=== PATIENT | male | born 1955 | race Caucasian/White ===

== ENCOUNTER 2025-04-19 19:50 | Emergency (ER) | payer MEDICARE, SELFPAY ==
[2025-04-19 19:50] VITALS: BP 155/68; PULSE 67; RESP 22; TEMP 36.3; O2SAT 95
--- OUTSIDE RECORDS SUMMARY | 2025-04-19 19:56 | XMS_ITS | Encounter Summary ---
Author Organization [facility] Address [address] [place] [address] Phone Care Team Providers Care Nuclear Plant Equipment Operator Name Role Phone Varinder Rojas MD Primary Care Provider [phone] No, Physician Primary Care Provider [phone] Encounter Details Date Type Department Care Team (Latest Contact Info) Description 07/31/2019 Orders Only [facility] Scanning, Provider Social History Tobacco Use Types Packs/Day Years Used Date Smoking Tobacco: Former Smokeless Tobacco: Never Alcohol Use Standard Drinks/Week Comments Defer 0 (1 standard drink = 0.6 oz pur e alcohol) Sex and Gender Information Value Date Recorded Sex Assigned at Not on file 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 Gender Identity Not on file Sexual Orientation Not on file documented as of this encounter Plan of Treatment Not on file documented as of this encounter Procedures Procedure Name Priority Date/Time Associated Diagnosis Comments SCAN - LABS 07/31/2019 documented in this encounter Results * SCAN - LABS (07/31/2019) us Provider Scanning Final Result documented in this encounter Visit Diagnoses Not on filedocumented in this encounter Care Teams Nuclear Plant Equipment Operator Relationship Specialty Start Date End Date Varinder Rojas MD [address] [place] [address] PCP - General 11/09/16 10/05/22 No, Physician PCP - General 11/23/23 documented as of this encounter
--- OUTSIDE RECORDS SUMMARY | 2025-04-19 19:56 | XMS_ITS | Clinical Summary ---
Author Organization [facility] Address [address] [place] [address] Care Team Providers Care Director Of Ancillary Services Name Role Phone No, Physician Primary Care Provider [phone] Allergies Active Allergy Reactions Criticality Noted Date Comments Bupropion Hives Medium 10/24/2022 Souhxox-Csg-Ykc Reductase Inhibitors Hives,Muscle pain Medium 07/23/2019 Muscle pain Sulfa (Sulfonamide Antibiotics) Anaphylaxis High 12/20/2017 Couth sores; Also any type of sulfa based drugs Medications multivitamin tabletIndicatio ns:Vitamin Deficiency Prevention daily. 01/14/20 08 Active sildenafil, antihypertensiv e, (REVATIO) 20 mg tablet TAKE 2 TO 5 TABLETS BY MOUTH NEEDED. MAX OF 5 PER DAY. 1 01/26/20 19 Active omeprazole (PriLOSEC) 20 mg capsule Take 1 capsule (20 mg total) by mouth daily Active ibuprofen (ADVIL,MOTRIN) suspension 100 mg/5 mL Take 1 tablet by mouth as needed Active lnpph-lzepi-2-d ar-cjy-fvrswu 734-95-38-50 mg capsule Take 1 capsule by mouth daily Active finasteride (PROSCAR) 5 mg tablet Take 1 tablet (5 mg total) by mouth nightly at bedtime 10/23/19 22 Active losartan (COZAAR) 50 mg tablet Take 1 tablet (50 mg total) by mouth daily 04/06/20 22 Active ezetimibe (ZETIA) 10 mg tablet Take 1 tablet (10 mg total) by mouth daily 10/26/19 23 Active ketoconazole (NIZORAL) 2 % shampoo APPLY SHAMPOO TOPICALLY TWICE WEEKLY 11/01/19 23 Active co-enzyme Q-10 50 mg capsule Take 1 capsule (50 mg total) by mouth daily Active carBAMazepine (TEGretol) 100 mg chewable tablet 03/06/20 23 Active krill oil 500 mg capsule Take by mouth daily Active multivitamin-mi nerals-lutein (Multivitamin 50 Plus) tablet Take 1 tablet by mouth daily Active coQ10, ubiquinol, 100 mg capsule daily Active losartan (COZAAR) 100 mg tablet Take 1 tablet (100 mg total) by mouth daily 06/21/20 23 Active amitriptyline (ELAVIL) 10 mg tablet TAKE 1 TABLET BY MOUTH AT BEDTIME MAY INCREASE TO TWO TABLETS AT BEDTIME AFTER 1 WEEK 12/08/19 24 Active predniSONE (DELTASONE) 5 mg tabletIndicatio ns:Psoriatic arthritis (HCC) Take 1/2 (one-half) tablet by mouth once daily 45 tablet 06/28/20 24 Active amLODIPine (NORVASC) 5 mg tablet Take 1 tablet (5 mg total) by mouth daily Active lisinopriL (PRINIVIL,ZESTR IL) 10 mg tablet Take 1 tablet (10 mg total) by mouth daily Active tofacitinib (Xeljanz XR) 11 mgIndications:R heumatoid arthritis, involving unspecified site, unspecified whether rheumatoid factor present (HCC) Take 1 tablet (11 mg total) by mouth daily 90 tablet 02/04/20 25 Active celecoxib (CeleBREX) 200 mg capsuleIndicati ons:Rheumatoid arthritis (HCC),Rheumatoi d arthritis with positive rheumatoid factor, involving unspecified site (HCC) Take 1 capsule (200 mg total) by mouth 2 (two) times a day 180 capsule 02/04/20 25 Active Additional Information Patient not taking.Reported on 02/26/2025 leflunomide (ARAVA) 20 mg tabletIndicatio ns:Psoriatic arthritis (HCC) Take 1 tablet by mouth once daily 90 tablet 1 04/04/20 25 Active leflunomide (ARAVA) 20 mg tabletIndicatio ns:Psoriatic arthritis (HCC) Take 1 tablet by mouth once daily 90 tablet 01/08/20 25 025 Discontinued Active Problems Problem Noted Date Diagnosed Date Primary osteoarthritis of right knee 11/05/2024 Psoriatic arthritis 09/29/2020 Obstructive sleep apnea 03/21/2019 Rheumatoid arthritis 11/06/2010 Overview (10/20/2017): Description: Rheumatoid Arthritis Encounters Date Type Department Care Team Description 02/26/2025 11:15 AM CDT Office Visit [facility] [address] [place] [address] [address] [place] [address] Gonzalo Harding NP Primary osteoarthritis of right knee (Primary Dx); Patellofemoral pain syndrome of right knee 02/26/2025 7:39 AM CDT - 02/26/2025 11:59 PM CDT Hospital Encounter [facility] [address] [place] [address] [address] [place] [address] Discharge Disposition: Discharge to home or self care 02/26/2025 Telephone [facility] [address] [place] [address] [address] [place] [address] Gonzalo Harding NP 02/03/2025 Telephone [facility] [address] [place] [address] Danielle Augustin, [facility] from Last 3 Months Immunizations Immunization Administration Dates Next Due Influenza, Quadrivalent, Hig h Dose, Preservative Free, Intrr 06/30/2020 Surgical History Surgery Date Site/Laterality Comments CARPAL TUNNEL RELEASE KNEE ARTHROSCOPY 07/10/1985 - 07/09/1986 SHOULDER ARTHROSCOPY 07/10/2003 - 07/09/2004 Medical History Medical History Date Comments Seasonal allergies Anxiety Autoimmune Chandler's disease Bone fracture Depression Hypertension Acid reflux disease Sinus infection Sleep apnea Acid reflux Allergic rhinitis Anxiety Depression High blood pressure Family History Medical History Relation Name Comments Lupus Daughter Family history of systemic lupus erythematosus - (Added by TW Conv) Brain Aneurysm Father Arthritis Mother Family history of arthritis - (Added by TW Conv) Arthritis Paternal Grandmother Fibromyalgia Sister Family history of fibromyalgia - (Added by TW Conv) Relation Name Status Comments Daughter Father Mother Paternal Grandmother Sister Social History Tobacco Use Types Packs/Day Years Used Date Smoking Tobacco: Former Smokeless Tobacco: Never Tobacco Cessation:Counseling Given: Not Answered Alcohol Use Standard Drinks/Week Comments Yes 0 (1 standard drink = 0.6 oz pur e alcohol) AUDIT-C Answer Date Recorded Q1: How often do you have a drink containing alc ohol? Monthly or less 02/26/2025 Q2: How many drinks containi ng alcohol do you have on a typical day when you are drinking? 1 or 2 02/26/2025 Q3: How often do you have si x or more drinks on one occasion? 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 Gender Identity Not on file Sexual Orientation Not on file Obstetrics History Last Filed Vital Signs Vital Sign Reading Time Taken Comments Blood Pressure 126/74 02/26/2025 11:07 AM CDT Pulse 75 02/26/2025 11:07 AM CDT Temperature 36.6 C (97.8 F) 10/16/2024 12:59 PM CDT Respiratory Rate 20 09/26/2022 10:17 AM CDT Oxygen Saturation 98% 10/16/2024 7:30 PM CDT Inhaled Oxygen Concentration - - Weight 94.8 kg (209 lb) 02/26/2025 11:07 AM CDT Height 182.9 cm (6') 02/26/2025 11:07 AM CDT Body Mass Index 28.35 02/26/2025 11:07 AM CDT Plan of Treatment Health Maintenance Due Date Last Done Comments Colon Cancer Screening-Colonoscopy 1955 Depression Screening 1956 Fall Risk Assessment 1955 Hepatitis C Screening 1955 Prostate Cancer Screening-PSA 1956 DTaP/Tdap/Td Vaccine (1 - Tdap) 09/11/1967 Hepatitis B Screening 1974 Pneumococcal vaccine 65+ (1 of 2 - PCV) 09/11/1975 Zoster Vaccine (1 of 2) 09/11/1975 Abdominal Aortic Aneurysm (A AA) Screen 2021 Well Visit 65+ 2021 Covid-19 Vaccine ( season) 2025 06/21/2021, 10/16/2020, 09/16/2020 Influenza Vaccine (#1) 2025 0, 07/04/2019, 06/15/2018 Procedures Procedure Name Priority Date/Time Associated Diagnosis Comments XR KNEE RIGHT 4 OR MORE VIEWS Schedule Routine, Read Routine (OP Routine) 02/26/2025 10:57 AM CDT Primary osteoarthritis of right knee from Last 3 Months Results * XR Knee Right 4 or More Views (02/26/2025 10:57 AM CDT) Anatomical Region Laterality Modality Lower Extremities, Knee Right Digital Radiography Narrative 02/26/2025 1:20 PM CDT Weightbearing views of the right knee are reviewed and demonstrate no acute fractures or osseous changes. Tricompartmental degenerative changes present with joint space narrowing, osteophyte formation, and subchondral sclerosis. Gonzalo Harding NP IMG XR PROCEDURES Edited Result - Final from Last 3 Months Insurance MEDICARE [facility] MEDICARE [facility] MEDICARE SUPPLEMENT MEDICARE [facility] MEDICARE SUPPLEMENT Member Subscriber Plan / Payer (Ef fective 2022-Present) Name:Efren Lindsey Relation to Subscriber:Self Name:LalyjesiEfren Payer ID:[id number] Group ID:[id number] Type:COMMERCIAL Address: [address] Care Teams Director Of Ancillary Services Relationship Specialty Start Date End Date No, Physician PCP - General 11/23/23
--- OUTSIDE RECORDS SUMMARY | 2025-04-19 19:56 | XMS_ITS | Clinical Summary ---
Author Organization [facility] Address [address] [place] [address] Care Team Providers Care Maid Supervisor Name Role Phone Melquiades Garcia MD [facility] Tammy Merritt MD Primary Care Provider [phone] Allergies Active Allergy Reactions Criticality Noted Date Comments Statins Hives 04/20/2021 Muscle pain Sulfa Antibiotics Anaphylaxis High 12/20/2017 Couth sores; Also any type of sulfa based drugs Bupropion Hives 10/24/2022 Medications omeprazole 20 MG capsuleIndicat ions:Gastroeso phageal Reflux Disease Take 1 capsule (20 mg total) by mouth daily. Indications: Gastroesophageal Reflux Disease Active FOLIC ACID ORIndications: Nutritional Support Take 1 tablet by mouth daily. Indications: Nutritional Support Activ e Krill Oil 300 MG CapIndications :Nutritional Support Take 1 capsule by mouth daily. Indications: Nutritional Support Activ e celecoxib (CELEBREX) 200 MG capsule Take 1 capsule (200 mg total) by mouth 2 (two) times daily. 09/16/19 Active losartan (COZAAR) 100 MG tablet Take 1 tablet (100 mg total) by mouth daily. 09/29/19 Active leflunomide (ARAVA) 20 MG tablet TAKE 1 TABLET BY MOUTH ONCE DAILY NEEDS LABS FOR FURTHER REFILLS 09/16/19 Active finasteride (PROSCAR) 5 MG tablet Take 1 tablet (5 mg total) by mouth nightly at bedtime. 09/15/19 Active predniSONE (DELTASONE) 5 mg tablet Take 1 tablet (5 mg total) by mouth daily. 09/16/19 Active sildenafil (REVATIO) 20 MG tablet TAKE 2 TO 5 TABLETS BY MOUTH ONCE DAILY NEEDED 09/17/19 Active coenzyme Q10 (CO Q-10) 50 MG capsule Take 1 capsule (50 mg total) by mouth daily. Active ezetimibe (ZETIA) 10 MG tablet Take 1 tablet (10 mg total) by mouth daily. Active amoxicillin (AMOXIL) 500 MG tablet Take 1 tablet (500 mg total) by mouth 2 (two) times daily. 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 ([facility]) 10/24/2022 Family History Medical History Relation Comments Cancer Father COPD Mother Hypertension Mother Rheumatic Fever Mother multiple myeloma Mother Relation Status Comments Father Mother Social History Tobacco Use Types Packs/Day Years Used Date Smoking Tobacco: Former Cigarettes Smokeless Tobacco: Never Tobacco Cessation:Counseling Given: Not Answered Comments:6-10/yrs Alcohol Use Standard Drinks/Week Comments Yes 0 (1 standard drink = 0.6 oz pur e alcohol) wine daily-usually Sex and Gender Information Value Date Recorded Sex Assigned at Male 01/13/2025 9:58 AM CDT Legal Sex Male 11:34 PM STAFF INTERNIST OFFICE BASED ONLY Gender Identity Not on file Sexual Orientation Not on file Occupation 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 Not on file Not on file Last Filed Vital Signs Vital Sign Reading Time Taken Comments Blood Pressure 145/80 02/17/2023 8:14 AM CDT Pulse 66 02/17/2023 8:14 AM CDT Temperature 35.8 C (96.5 F) 02/17/2023 8:14 AM CDT Respiratory Rate 20 02/17/2023 8:14 AM CDT Oxygen Saturation 98% 02/17/2023 8:14 AM CDT Inhaled Oxygen Concentration - - Weight 96.6 kg (213 lb) 11/25/2024 12:54 PM CDT Height 185.4 cm (6' 1) 11/25/2024 12:54 PM CDT Body Mass Index 28.1 11/25/2024 12:54 PM CDT Plan of Treatment Health Maintenance Due Date Last Done Comments Colorectal Cancer Screening Colonoscopy (10 Years) 1956 Hepatitis C 1974 Pneumococcal Vaccine: 50+ Years (2 of 2 - PCV) 06/14/2013 06/14/2012 Zoster Vaccines (2 of 3) 12/29/2014 11/03/2014 Annual Medicare Wellness Visit 2021 DTaP, Tdap and Td Vaccines (2 - Td or Tdap) 06/14/2022 06/14/2012 PHQ-2 (Physician [place]) 07/10/2024 COVID-19 Vaccine ( season) 2025 06/21/2021, 10/16/2020, 09/16/2020 Influenza Adult (#1) 2025 07/04/2019, 06/15/2018, 04/24/2014, Additional history exists RSV Immunization or 60+ Years (1 - 1-dose 75+ series) 09/11/2031 Meningococcal B Vaccine Aged Out No l onger eligible based on patient's age to complete this topic Meningococcal Vaccine Aged Out No babak grant eligible based on patient's age to complete this topic RSV Immunizations Under 20 Months Aged Out No longer eligible based on patient's age to complete this topic Medical Devices Implanted Type Area Tree Scout Device Identifier Shelf Expiration Date Model / Serial / Lot Screw Synthes 1.5 Cortex Self Tap 10mm - [id number] Implanted:Qty: 1 on 04/23/2021 by Jason Urbina DPM at [facility] Screw Right: Foot SYNTHES 200.810 / / Description:Verified per Screw Synthes 2.0 Cortex Self Tap 8mm - [id number] Implanted:Qty: 1 on 04/23/2021 by Jason Urbina DPM at [facility] Screw Right: Foot SYNTHES 201.808 / / Description:Verified per Screw Synthes 2.0 Cortex Self Tap 18mm - [id number] Implanted:Qty: 1 on 04/23/2021 by Jason Urbina DPM at [facility] Screw Right: Foot SYNTHES 201.818 / / Description:Verified per md Explanted Type Area Tree Scout Device Identifier Shelf Expiration Date Model / Serial / Lot Drill Bit Synthes 1.5 Qc 85mm - [id number] Explanted:Qty: 1 on 04/23/2021 at [facility] Drill Right: Foot SYNTHES 310.15 / / N/A Description:Verified by MD Neal Vang 6 In X .045 In - [id number] Explanted:Qty: 1 on 04/23/2021 at [facility] Wire Right: Foot [employer] [id number] 08/01/2030 [id number] / / [id number] Description:Verified by Insurance [place] [address] [place] [id number] [facility] MEDICARE [facility] Advance Directives * Full Code (Latest Code Status on File) Date Activated Date Inactivated Comments 04/23/2021 10:06 AM 04/23/2021 1:14 PM Care Teams Maid Supervisor Relationship Specialty Start Date End Date Tammy Bang MD [address] [place] [id number] PCP - General FAMILY PRACTICE 03/20/24 Melquiades Garcia MD [facility] Assistant INTERVENTIONAL CARDIOLOGY 12/08/17
--- NOTE | 2025-04-19 20:13 | ED_ITS ---
HPI - Burn/Smoke Inhalation General Chief complaint: Burn/Smoke Inhalation Stated complaint: burn Time Seen by Provider: 04/19/25 20:11 Source: patient and family Mode of arrival: ambulatory Limitations: no limitations History of Present Illness HPI Narrative: this is a 61-year-old male with no significant past medical history while cooking inadvertently and accidentally spilled hot grease on his right lower leg and caused a blister that popped on his right large toe proximally 2cm in diameter. No other injuries no shortness of breath no smoke inhalation no chest pain no nausea vomiting or abdominal pain. MD Complaint: burn Onset (ago): hour(s) Type of Exposure: hot liquid Place: home Location: other ( right lower leg and right large toe blister) Review of Systems Review of Systems: All systems reviewed & are unremarkable except as noted in HPI and below PMFSH Past Medical History Medical History Patient denies medical problems Exam Const: General: healthy appearing and no acute distress Nutritional Appearance: well nourished Resp: Effort & Inspection: normal respiratory effort Auscultation: clear to auscultation bilaterally Cardio: Rate: regular rate Rhythm: regular rhythm GI: GI Palp: Yes Soft to palpation Auscultation: normal bowel sounds Skin: Other: 1st degree burn on right lower leg and second-degree burn with blister that popped on the anterior surface of his right large toe. Neuro: General: moves all extremities Course Course Emergency Course: Medical decision making narrative: The patient was evaluated by myself in the emergency department. History obtained from patient was independent historian and physical exam performed and witnessed by tech. With some 1st and second-degree grieved burn to his right lower leg and right great toe Leg with a 1st degree burn that is some redness and the toe has a blister that ruptured. Treatment, place Silvadene ointment and administer antibiotics. Patient is up-to-date with his tetanus. Repeat assessment Patient doing well with no acute distress Repeat vitals are stable His symptoms improved since arrival to the ED. Patient agrees with discussion and after shared medical decision making and agrees with discharge All questions answered to patient's satisfaction Follow-up within 3 to 5 days with primary care physician. Vital Signs Vital signs: Vital Signs Temperature 36.3 C L 04/19/25 19:50 Pulse Rate 67 04/19/25 19:50 Respiratory Rate 22 H 04/19/25 19:50 Blood Pressure 155/68 H 04/19/25 19:50 Pulse Oximetry 95 04/19/25 19:50 Oxygen Delivery Room Air 04/19/25 19:50 Temperature 36.3 C L 04/19/25 19:50 Pulse Rate 67 04/19/25 19:50 Respiratory Rate 22 H 04/19/25 19:50 Blood Pressure 155/68 H 04/19/25 19:50 Pulse Oximetry 95 04/19/25 19:50 Oxygen Delivery Room Air 04/19/25 19:50 Critical Care Time Critical Care Time Critical Care Time: No Discharge Plan Discharge Clinical Impression: Burn of first degree of ankle and foot Patient Disposition: Home Condition: Stable Instructions: Antibiotic Form, Second-Degree Burn (ED) Additional Instructions: advised to follow with primary care physician within the next 3 to 5 days, apply a medication to affected looney and take antibiotics as prescribed. Patient Language: Bahraini Prescriptions: New silver sulfadiazine [Silvadene] 1 % cream 1 applic topical BID 7 Days Qty: 50 0RF Rx Instructions: apply a 1.5 mm thickness amoxicillin-pot clavulanate [Augmentin] 500-125 mg tablet 1 tablet PO TID Qty: 30 0RF Follow-up/Referrals: UNKNOWN,DOCTOR [Primary Care Provider] Time of Disposition: 20:20
[2025-04-19] MEDS: NEOMYCIN/POLYMYXIN/BACITRACIN OINTMENT PACKET 2 PACKET TOPICAL (20:27)
--- OUTSIDE RECORDS SUMMARY | 2025-04-19 20:35 | XMS_ITS | Encounter Summary ---
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
--- OUTSIDE RECORDS SUMMARY | 2025-04-19 20:35 | XMS_ITS | Clinical Summary ---
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 Gender Identity Not on file Sexual Orientation Not on file 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 Not on [...] Td or Tdap) 06/14/2022 06/14/2012 PHQ-2 (Physician [place]) 07/10/2024 COVID-19 Vaccine ( season) 2025 06/21/2021, [...] this topic Medical Devices Implanted Type Area Mica Machine Operator Device Identifier Shelf Expiration Date Model / Serial / Lot Screw Synthes 1.5 Cortex Self Tap 10mm - [id number] Implanted:Qty: 1 on 04/23/2021 by Jason Urbina DPM at [facility] Screw Right: Foot SYNTHES 200.810 / / Description:Verified per Screw Synthes 2.0 Cortex Self Tap 8mm - [id number] Implanted:Qty: 1 on 04/23/2021 by Jason Urbina DPM at [facility] Screw Right: Foot SYNTHES 201.808 / / Description:Verified per Screw Synthes 2.0 Cortex Self Tap 18mm - [id number] Implanted:Qty: 1 on 04/23/2021 by Jason Urbina DPM at [facility] Screw Right: Foot SYNTHES 201.818 / / Description:Verified per md Explanted Type Area Mica Machine Operator Device Identifier Shelf Expiration Date Model / Serial / Lot Drill Bit Synthes 1.5 Qc 85mm - [id number] Explanted:Qty: 1 on 04/23/2021 at [facility] Drill Right: Foot SY[employer]ES 310.15 / / N/A Description:Verified by MD Neal Vang 6 In X .045 In - [id number] Explanted:Qty: 1 on 04/23/2021 at [facility] Wire Right: Foot [employer] [id number] 08/01/2030 [id number] / / [id number] Description:Verified by Insurance MEDICARE [email or web address] MEDICARE [facility] [[email or web address]] Advance Directives * Full Code (Latest Code Status on File) Date Activated Date Inactivated Comments 04/23/2021 10:06 AM 04/23/2021 1:14 PM Care Teams Slubber Tender Relationship Specialty Start Date End Date Tammy Bang MD [address] [place] [id number] PCP - General FAMILY PRACTICE 03/20/24 Melquiades Garcia MD [place] [facility] Genetic INTERVENTIONAL CARDIOLOGY 12/08/17
--- OUTSIDE RECORDS SUMMARY | 2025-04-19 20:35 | XMS_ITS | Clinical Summary ---
Author Organization [facility] Address [address] [place] [address] Care Team Providers Care Bridge Maintenance Worker Name Role Phone No, Physician Primary Care Provider [phone] Allergies Active Allergy Reactions Criticality Noted Date Comments Bupropion Hives Medium 10/24/2022 Mcbzzeb-Xvb-Yzt Reductase Inhibitors Hives,Muscle pain Medium 07/23/2019 Muscle [...] 1 tablet by mouth as needed Active jhogl-ewqyr-5-d jo-azm-noolig 316-46-05-50 mg capsule Take 1 capsule by mouth [...] Description 02/26/2025 11:15 AM CDT Office Visit [facility] [address] [place] [address] [address] [place] [address] Gonzalo Harding NP Primary osteoarthritis of right knee (Primary Dx); Patellofemoral pain syndrome of right knee 02/26/2025 7:39 AM CDT - 02/26/2025 11:59 PM CDT Hospital Encounter [facility] [address] [place] [address] [address] [place] [address] Discharge Disposition: Discharge to home or self care 02/26/2025 Telephone [facility] [address] [place] [address] [address] [place] [address] Gonzalo Harding NP 02/03/2025 Telephone [facility] [address] [place] [address] Danielle Augustin, [facility] from Last 3 Months Immunizations Immunization Administration [...] on file 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
== END 2025-04-19 20:47 | disposition home or self-care (01) ==
PROVIDERS: Emergency Provider Emergency Medicine; Referring Provider Internal Medicine
DX: T25.121A Burn of first degree of right foot, initial encounter (principal); T25.111A Burn of first degree of right ankle, initial encounter; T31.0 Burns involving less than 10% of body surface; X10.2XXA Contact with fats and cooking oils, initial encounter
CPT/HCPCS: 16000; 99283; A9270